=== PATIENT | female | born 1990 | race Caucasian/White ===

== ENCOUNTER → 2016-06-25 | Outpatient (REF) | payer OTHER | LOC: M LAB REF 12:44 | PROVIDERS: ATTEND Advanced Practice Midwife | DX: Z34.83 Encounter for supervision of other normal pregnancy, third trimester (principal) ==

== ENCOUNTER 2016-07-15 05:42 | Inpatient (IN) | payer OTHER ==
[~2016-07-15] VITALS: Ht 165.1 cm; Wt 102.0 kg
[2016-07-15] VITALS (31 sets, daily range): BP systolic 87–137; BP diastolic 53–85
[2016-07-15] MEDS ORDERED: AMPICILLIN 2 GM VIAL As Ordered ONE (06:38)
[2016-07-15] MEDS ORDERED: LACTATED RINGER'S 1000 ML IV STA (06:51)
[2016-07-15] MEDS ORDERED: AMPICILLIN SOD 2 GM in D5W MINI-BAG PLUS 100 ML IV STA (06:51)
[2016-07-15] MEDS ORDERED: LR 1,000 ML IV SCH ×2 (06:51→11:59)
[2016-07-15] MEDS ORDERED: miSOPROStol 50 MCG 1/2 TAB (S0191) As Ordered ONE (07:22)
[2016-07-15] MEDS ORDERED: miSOPROStol 50 MCG 1/2 TAB (S0191) PO SCH (08:00)
[2016-07-15 09:35] LABS: MEAN CORPUSCULAR HEMOGLOBIN 30.1 pg (27.0-33.0); MEAN CORPUSCULAR VOLUME 88.6 fl (80.0-96.0); RED CELL DISTRIBUTION WIDTH 14.4 % (11.5-14.5); WHITE BLOOD COUNT 7.6 K/mm3 (4.0-10.0)
[2016-07-15] MEDS ORDERED: FENTANYL 2MCG/ML ROPIVACAINE 0.2% NACL 250 ML CADD As Ordered ONE (09:42)
[2016-07-15] MEDS ORDERED: FENTANYL/ROPIVACAINE/NACL CADD 250 ML EPIDURAL SCH (10:30)
[2016-07-15] MEDS ORDERED: ePHEDrine SULFATE 25 MG/5 ML(5MG/ML) SYRINGE IV PRN (10:30)
[2016-07-15] MEDS ORDERED: EPIDURAL/PCA KEYS XX PRN (10:30)
[2016-07-15] MEDS ORDERED: REFRIGERATOR IV KEYS XX PRN (10:30)
[2016-07-15] MEDS ORDERED: EPIDURAL COMMENT XX SCH (10:30)
[2016-07-15] MEDS ORDERED: NALOXONE INJ 0.4 MG/1 ML VIAL (J2310) IV PRN (10:30)
[2016-07-15] MEDS ORDERED: diphenhydrAMINE INJ 50MG/ML VIAL (J1200) IV PRN (10:30)
[2016-07-15] MEDS ORDERED: ONDANSETRON 4MG/2ML VIAL (J2405) IV PRN (10:30)
[2016-07-15] MEDS ORDERED: LACTATED RINGER'S 1000 ML IV PRN (10:30)
[2016-07-15] MEDS: AMPICILLIN SOD 1 GM in D5W MINI-BAG PLUS 50 ML IV SCH ×3 (11:03→18:53)
[2016-07-15] MEDS ORDERED: OXYTOCIN DRIP 30 UNITS in APPROPRIATE DILUENT 1 EA IV SCH ×2 (12:00→19:57)
[2016-07-15] MEDS ORDERED: OXYTOCIN 30 UNITS IN 0.9% NaCl 500ML IV BAG (J2590) As Ordered ONE (12:05)
--- NOTE | 2016-07-15 12:18 | IPNPDOC ---
Obstetrical Progress Note Date of Service The patient was seen on 07/15/16 at 12:00. Progress Note SUBJECTIVE: Patient reports that she is comfortable with her epidural. She still does feel her contractions on her left side but reports the contractions are tolerable. Patient also states she feels pressure with the contractions. OBJECTIVE: heart rate 140, moderate variability, early decelerations, 10 x 10 accelerations. Contractions are every 2-6 minutes. SVE: 4/50/-2, soft, anterior, no show. VITAL SIGNS: Please see below. ASSESSMENT: IUP at 39 weeks gestation, category 1 heart rate tracing, elective induction of labor for history of precipitous deliveries. PLAN: Pitocin via IV ordered. Reviewed medication with patient along with risks/ benefits. Patient agrees to the use of the medication. Anticipate cervical change and . VS, I&O, 24H, Fishbone Vital Signs/I&O Vital Signs Date Time Temp Pulse Resp B/P Pulse Ox O2 Delivery O2 Flow Rate FiO2 07/15/16 11:30 98.9 18 07/15/16 11:29 68 99/57 Laboratory Data 24H LABS Laboratory Tests 2 07/15/16 06:13: Serology Scanned Report Hepatitis B Testing 07/15/16 07:08: Syphilis Serology NONREACTIVE CBC/BMP Laboratory Tests 07/15/16 09:16 Red Blood Count 3.96 L, Mean Corpuscular Volume 88.6, Mean Corpuscular Hemoglobin 30.1, Mean Corpuscular Hemoglobin Concent 34.0, Red Cell Distribution Width 14.4 JANICE DORMAN CNM Jul 15, 2016 12:18
--- NOTE | 2016-07-15 17:03 | IPNPDOC ---
Obstetrical Progress Note Date of Service The patient was seen on 07/15/16 at 16:59. Progress Note SUBJECTIVE: Patient reports she is comfortable with epidural. OBJECTIVE: FHR: 135, moderate variability, positive accelerations, no decelerations. Contractions every 1-4 minutes. SVE 4-5/50/-2. AROM with consent to a moderate amount of clear fluid. Pitocin at 16 mu/m. VITAL SIGNS: Please see below. ASSESSMENT: IUP at 39 weeks gestation, Category I FHR tracing PLAN: Continue with Pitocin induction. Anticipate cervical dilation and . VS, I&O, 24H, Fishbone Vital Signs/I&O Vital Signs Date Time Temp Pulse Resp B/P Pulse Ox O2 Delivery O2 Flow Rate FiO2 07/15/16 15:06 99.3 62 18 98/53 JANICE DORMAN CNM Jul 15, 2016 17:03
[2016-07-15] MEDS ORDERED: RHOGAM 300 MCG (1500 IU) INJ (J2790) IM SCH (20:00)
[2016-07-15] MEDS ORDERED: ANUSOL HC CREAM 30GM TOP PRN (20:00)
[2016-07-15] MEDS ORDERED: METHYLERGONOVINE MALEATE 0.2 MG TAB PO PRN (20:00)
[2016-07-15] MEDS ORDERED: MEASLES,MUMPS,RUBELLA VACCINE INJ (MMR-II) (90707) SC SCH (20:00)
[2016-07-15] MEDS ORDERED: DOCUSATE SODIUM 100 MG CAP PO PRN (20:00)
[2016-07-15] MEDS ORDERED: DIBUCAINE 1% OINTMENT 30GM TOP PRN (20:00)
--- NOTE | 2016-07-15 20:12 | DNPDOC ---
Delivery Note Delivery Note Deanna is a 25-year-old now G3P 3003 at 39 weeks' gestation who presented to labor and delivery for elective induction of labor due to a history of a precipitous delivery. A dose of Cytotec was used along with Pitocin via IV for the induction. The patient obtained an epidural for pain management. She progressed to fully dilated at 1929. Patient pushed to a spontaneous vaginal delivery at 1936 to a living female in the GM position with restitution to LOT. Nuchal cord 2 tight along with a left nuchal hand. Shoulders delivered with ease using the Somersault method and the corpus immediately followed. Baby placed on maternal abdomen crying and active. Cord clamped 2 and cut by father of the baby after pulsation ceased. Spontaneous delivery of intact placenta with a three-vessel cord by Posadas mechanism at 1944. Uterine hemostasis achieved by rapid infusion of IV Pitocin and uterine fundal massage. Perineum and vagina inspected and found to have a periurethral laceration that was not repaired. EBL 250. 's 9/10. Weight 6 lbs. 14 oz., 3106 grams. 's name is Rebecca and mom is breast-feeding . Mom and baby stable at this time. JANICE DORMAN CNM Jul 15, 2016 20:12
--- NOTE | 2016-07-15 21:18 | HPE ---
DATE OF ADMISSION: 07/15/2016 Arabella is a 25-year-old female 3, para 2-0-0-2 with an estimated date of confinement (EDC) of 07/22/2016, estimated gestational age 39 weeks gestation , with history of rapid labor, requesting an induction at 39 weeks. On admission, no bleeding. No leakage of fluid. Good movement. Her record is reviewed as positive group B Streptococcus (GBS). She also has a history of precipitous labor. Her lab blood type is A+, rubella immune, hepatitis negative, HIV negative, gonorrhea/chlamydia negative. One-hour sugar testing was within normal limits. Her group B Streptococcus (GBS) is positive. PAST MEDICAL HISTORY: Denies. PAST SURGICAL HISTORY: History of cholecystectomy in 2014. SOCIAL HISTORY: She denies any alcohol, drug or cigarette smoking. FAMILY HISTORY: Significant for hypertension and Crohn's disease. MEDICATIONS: - vitamins ALLERGIES: No known drug allergies. PHYSICAL EXAMINATION ON ADMISSION: Normal-appearing obese female in no acute distress. ABDOMEN: Soft, nontender, nondistended. EXTREMITIES: No clubbing, cyanosis or edema. VAGINAL EXAMINATION: Fingertip to 1 cm dilated, 60% effaced. Fetus at -3 station in a vertex position. Tracing reviewed. Category one tracing with irregular contractions. ASSESSMENT: 1. Intrauterine at 39 weeks gestation. 2. Group B Streptococcus (GBS) positive. 3. History of rapid labor, requesting induction. PLAN: Admit the patient to labor and delivery. Ampicillin started for GBS prophylaxis. Induction process discussed extensively. Benefit of induction process discussed with the patient. The patient still wants to proceed with the induction. Misoprostol induction will be initiated. The use of misoprostol explained to the patient including risks of uterine rupture and distress. Patient is aware and wishes to proceed with the induction process. [facility]PITAL[facility]ys[facility]
[2016-07-16] MEDS: IBUPROFEN 800 MG TAB PO PRN ×3 (00:10→18:24)
[2016-07-16] MEDS: ACETAMINOPHEN 500 MG TAB PO PRN (02:00)
[2016-07-16 05:52] VITALS: BP 115/58
[2016-07-16] MEDS ORDERED: PRENATAL VITAMIN TAB PO SCH (09:00)
[2016-07-16 18:30] VITALS: BP 113/77
[2016-07-17] MEDS: ACETAMINOPHEN 500 MG TAB PO PRN (01:18)
[2016-07-17] MEDS: IBUPROFEN 800 MG TAB PO PRN (05:19)
[2016-07-17 05:35] VITALS: BP 119/72
[2016-07-17] MEDS ORDERED: PRENTAB9 PO (10:00)
[2016-07-17] MEDS ORDERED: MOTR200T44 PO (10:00)
== END 2016-07-17 10:50 | disposition home or self-care (01) | DRG 775 ==
LOC: M LDI 05:42 → M OBS 21:22
PROVIDERS: ADMIT Obstetrics & Gynecology; ATTEND Obstetrics & Gynecology
PROC: 10E0XZZ Delivery of Products of Conception, External Approach (ICD-10-PCS; principal; 2016-07-15)
PROC: 3E033VJ Introduction of Other Hormone into Peripheral Vein, Percutaneous Approach (ICD-10-PCS; 2016-07-15)
DX: O69.89X0 Labor and delivery complicated by other cord complications, not applicable or unspecified (principal); Z37.0 Single live birth; Z3A.39 39 weeks gestation of pregnancy; O70.0 First degree perineal laceration during delivery; O99.820 Streptococcus B carrier state complicating pregnancy

== ENCOUNTER 2017-07-05 03:38 | Emergency (ER) | payer OTHER ==
[2017-07-05] MEDS: AMOXICILLIN 500 MG CAP PO (05:38)
== END 2017-07-05 05:41 | disposition home or self-care (01) ==
LOC: M ED 03:38
DX: H66.001 Acute suppurative otitis media without spontaneous rupture of ear drum, right ear (principal)
CPT/HCPCS: 99283

== ENCOUNTER 2017-07-05 18:20 | Emergency (ER) | payer OTHER | END 2017-07-05 19:42 | disposition home or self-care (01) | LOC: M ED 18:20 | DX: H72.01 Central perforation of tympanic membrane, right ear (principal) | CPT/HCPCS: 99282 ==

== ENCOUNTER → 2018-02-16 | Outpatient (REF) | payer OTHER | LOC: M SFHCLERA 16:57 | DX: J02.9 Acute pharyngitis, unspecified (principal) ==

== ENCOUNTER → 2018-04-22 | Outpatient (CLI) | payer OTHER ==
[~2018-04-22] MED LIST: AMOX500C PO; MOTR200T44 PO; PRENTAB9 PO; PROHANCE 279.3MG/ML 15ML VIAL (A9576) As Ordered ONE; PROHANCE 279.3MG/ML 5ML VIAL (A9576) As Ordered ONE
--- NOTE | 2018-04-22 14:52 | REP ---
MRI SOFT TISSUE NECK WITHOUT AND WITH IV GADOLINIUM: HISTORY: Thyroid nodules. GADOLINIUM ENHANCEMENT DOSE: 18 mL of intravenous ProHance. TECHNIQUE: Axial and coronal T1- and T2-weighted scans were obtained with pre and post gadolinium enhanced imaging. MRI FINDINGS: The thyroid gland is normal and symmetric in size. It is slightly heterogeneous particularly on post gadolinium enhanced images. No measurable thyroid nodule is seen by MRI scanning. There is no evidence of lymphadenopathy. There are three visible left internal jugular lymph nodes at the level of the mandibular angle. The largest of these is normal size measuring 6 x 11 x 16 mm. Submandibular and parotid glands are normal and symmetric. Tonsillar and peritonsillar soft tissues are unremarkable. Epiglottis is unremarkable. No bony abnormality is seen. IMPRESSION: Somewhat heterogeneous thyroid parenchyma. No definable thyroid nodule. No evidence of lymphadenopathy. Electronically Signed by Ivan Barlow MD 04/22/2018 03:13 P
== END ==
LOC: M RAD 12:28
PROVIDERS: ATTEND Student in an Organized Health Care Education/Training Program
DX: E04.1 Nontoxic single thyroid nodule (principal)
CPT/HCPCS: 70543; A9576

== ENCOUNTER → 2018-06-01 | Outpatient (CLI) | payer OTHER ==
[~2018-06-01] MED LIST changes: +E-Z-GAS II EFFERVESCENT PACKET (SODIUM BICARB./CITRIC ACID/SIMETHICONE) As Ordered ONE; +E-Z-HD 98% w/w 340GM SUSP BTL As Ordered ONE; +E-Z-PAQUE 96% w/w SUSP 176GM BTL As Ordered ONE; -PROHANCE 279.3MG/ML 15ML VIAL (A9576) As Ordered ONE; -PROHANCE 279.3MG/ML 5ML VIAL (A9576) As Ordered ONE
--- NOTE | 2018-06-01 17:56 | REP ---
Esophagram The procedure was performed under the direct supervision of Dr. Barlow. The images were reviewed with Dr. Barlow. A single view PA chest x-ray is submitted as a dip tube assembler machine film. The superior mediastinal structures are midline. The heart size is within normal limits. The lungs are clear. Liquid barium and gas producing granules were given in the erect position as well as liquid barium in the prone oblique positions in order to perform a double contrast esophagram examination. The oral and pharyngeal stages of deglutition are unremarkable. Esophageal transport is prompt and efficient and there is no esophagitis, stricture, mucosal ring or hiatal hernia. There is gastroesophageal reflux demonstrated to the level of the thoracic inlet. Impression: There is gastroesophageal reflux demonstrated to the level of the thoracic inlet, otherwise, unremarkable double contrast upper GI examination. 0.6 minutes of fluoro time was utilized for this procedure. Reviewed by TARIQ Monahan 06/01/2018 05:20 P Electronically Signed by Ivan Barlow MD 06/01/2018 05:47 P
== END ==
LOC: M RAD 09:57
PROVIDERS: ATTEND Student in an Organized Health Care Education/Training Program
DX: R13.10 Dysphagia, unspecified (principal)